=== PATIENT | male | born 1955 | race Caucasian/White ===

== ENCOUNTER 2018-12-06 18:11 | Emergency (ER) | payer OTHER ==
[2018-12-06] MEDS ORDERED: IBUPROFEN 400 MG TABLET ONE (18:27)
[2018-12-06] MEDS ORDERED: ACETAMINOPHEN EXTRA STRENGTH 500 MG TABLET ONE (19:03)
== END 2018-12-06 19:16 | disposition home or self-care (01) ==
LOC: EDH 18:11
DX: S56.911A Strain of unspecified muscles, fascia and tendons at forearm level, right arm, initial encounter (principal); S60.211A Contusion of right wrist, initial encounter; Z72.0 Tobacco use; W18.39XA Other fall on same level, initial encounter; Y93.89 Activity, other specified; Y92.89 Other specified places as the place of occurrence of the external cause; Y99.8 Other external cause status
CPT/HCPCS: 73090; 73110; 73130

== ENCOUNTER 2024-06-14 10:03 | Emergency (ER) | payer MEDICARE ==
[~2024-06-14] VITALS: Ht 185.4 cm; Wt 95.3 kg
[2024-06-14 10:04] VITALS: BP 125/88; PULSE 83; RESP 20; TEMP 98.6
[2024-06-14] MEDS ORDERED: MUPI22OI2 TP (10:13)
[2024-06-14] MEDS ORDERED: CEPH500B PO (10:13)
--- NOTE | 2024-06-14 10:14 | ERN ---
General Chief Complaint: Earache Stated Complaint: RIGHT EAR PROBLEM Time Seen by MD: 10:03 Time Seen by Midlevel: 10:03 Source: patient History of Present Illness Initial Comments The patient is a 68-year-old male presenting to the emergency department for evaluation of pain and swelling to the right ear. 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 He reports having surgery approximately four years ago but has never followed up for this again. Most recently he noticed a small area of scabbing that has progressively worsened. He noticed swelling and increased pain to the area so he decided to report to the ER for further evaluation. Denies any fever, chills, or any other symptoms at this time. Allergies: Coded Allergies: No Known Allergies (Unverified Allergy, Unknown, 12/06/18) No Known Drug Allergies (Unverified Allergy, Unknown, 12/06/18) Home Meds Active Scripts Cephalexin Monohydrate (Keflex) 500 Mg Cap, 500 MG PO QID for 7 Days, #28 CAP Prov:EMERY BARRIOS 06/14/24 Mupirocin (Mupirocin Ointment) 2 % Oint, 1 APPL TP TID for 5 Days, #15 GM 0 Refills apply to affected area(s) Prov:EMERY BARRIOS 06/14/24 Past Medical History Past Medical History: Cancer Past Surgical History: Other Surgical History Other: BACK, RIGHT EAR CANCER ROS Dictation CONSTITUTIONAL: Negative except for HPI HEAD/FACE: Negative except for HPI EENT: Negative except for HPI RESPIRATORY: Negative except for HPI GASTROINTESTINAL/ABDOMINAL: Negative except for HPI GENITOURINARY: Negative except for HPI MUSCULOSKELETAL: Negative except for HPI INTEGUMENTARY: Negative except for HPI NEUROLOGICAL/PSYCH: Negative except for HPI HEMATOLOGIC/LYMPHATIC: Negative except for HPI All Systems Negative, Except as noted above. 13 point review of systems assessed and all negative except for above. Physical Exam Physical Exam Dictation PHYSICAL EXAM: GENERAL: alert,, awake oriented x 3 HEENT: EOMI, Sclera non icteric, moist mucosa NECK: Supple, no JVD, trachea midline LUNGS: Clear breath sounds bilaterally. No wheezes HEART: Regular rate and rhythm. Normal S1 and S2, without murmurs ABD: Abdomen soft, nontender. Bowel sounds present EXT: No clubbing or cyanosis, NEURO: Alert and oriented to person, follows commands SKIN: There is mild swelling and scabbing overlying the helix with overlying tenderness, no erythema, no induration, no drainable abscess [facility] MDM: The patient is a 68-year-old male presenting to the emergency department for evaluation of pain and swelling to the right ear. 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 He reports having surgery approximately four years ago but has never followed up for this again. Most recently he noticed a small area of scabbing that has progressively worsened. He noticed swelling and increased pain to the area so he decided to report to the ER for further evaluation. Denies any fever, chills, or any other symptoms at this time. Initial clinical evaluation reveals normal vital signs. On physical examination the patient has mild swelling and scabbing overlying the helix with overlying tenderness, no erythema, no induration, no drainable abscess. Otherwise the remainder of his physical examination is unremarkable. Based on his physical examination it appears the patient has a superficial staph infection. We will treat with outpatient oral antibiotics and topical mupirocin. Patient was given a referral to outpatient Dermatology for further evaluation. Differential diagnosis: Cellulitis, abscess, superficial staph infection There are no social concerns with this patient. Prescription drug management Prescriptions will include: Keflex and topical mupirocin Medical management and examination interpretation discussions were had by me with other qualified healthcare professionals as indicated for the patient's care. ED Course Vital Signs Date Time Temp Pulse Resp B/P (MAP) Pulse Ox O2 Delivery O2 Flow Rate FiO2 06/14/24 10:04 98.6 83 20 125/88 99 Room Air 0 DX & DISP Disposition: Discharge Departure Impression: Primary Impression: Infection of right external ear Condition: Stable Scripts Cephalexin Monohydrate (Keflex) 500 Mg Cap 500 MG PO QID for 7 Days, #28 CAP Prov: EMERY BARRIOS 06/14/24 Mupirocin (Mupirocin Ointment) 2 % Oint 1 APPL TP TID for 5 Days, #15 GM 0 Refills apply to affected area(s) Prov: EMERY BARRIOS 06/14/24 Referrals: SELF,REFERRAL (PCP) KENNEDY HERRERA MD Time of Disposition: 10:13 I have reviewed the case, and I agree with, Diagnosis and Plan I performed the substantive portion of the visit. I have reviewed and personally made and approve the management plan that is documented in the note by myself or the ANJEL. I acknowledge for responsibility for the patient's management plan. EMERY BARRIOS Jun 14, 2024 10:14 LUCIANO HANSEN DO Jun 14, 2024 11:15
== END 2024-06-14 10:25 | disposition home or self-care (01) ==
LOC: EDH 10:03
DX: H60.391 Other infective otitis externa, right ear (principal); Z79.899 Other long term (current) drug therapy; Z98.890 Other specified postprocedural states
CPT/HCPCS: 99283